=== PATIENT | female | born 1970 | race Caucasian/White ===

== ENCOUNTER 2017-01-22 05:46 | Outpatient (CLI) | payer BC ==
[~2017-01-22] VITALS: Ht 162.6 cm; Wt 108.9 kg
[2017-01-22] MEDS ORDERED: CHOL100045 PO (12:35)
[2017-01-22] MEDS ORDERED: PSEU30TA37 PO (12:35)
[2017-01-22] MEDS ORDERED: SPIR25TA3 PO (12:35)
== END 2017-01-22 12:50 ==
LOC: PREOP 05:46
PROVIDERS: ATTEND Internal Medicine
DX: Z01.818 Encounter for other preprocedural examination (principal); Z12.11 Encounter for screening for malignant neoplasm of colon

== ENCOUNTER 2017-01-23 08:14 | Day surgery (SDC) | payer BC ==
--- NOTE | 2017-01-22 09:18 | HISTORY AND PHYSICAL ---
DATE OF SERVICE: DATE OF ADMISSION: 01/23/2017 HISTORY OF PRESENT ILLNESS: The patient is a 46-year-old white female referred by Dr. Tamez for screening colonoscopy. There is a strong family history for colon cancer. Individuals include her father diagnosed in his 50s. She had grandfather and a great grandfather both on dad's side diagnosed with early colon cancer. She last underwent colonoscopy per Dr. Brooks in 2009. Her mother has history of breast cancer as well diagnosed postmenopausal. She ultimately ; however, of kidney cancer. The patient apparently did have at least 1 polyp on her colonoscopy in 2009 and she had had 1 previous colonoscopy around 2004 and she may have had a polyp at that time as well. Her procedures were performed by Dr. Brooks in [place]. PAST SURGICAL HISTORY: Significant for laparoscopic cholecystectomy in 2009 with an appendectomy at that time as well. SOCIAL HISTORY: She has a 5-pack-year smoking history, but quit in 2004. She reports three glasses of wine intake per week, compatible with moderate consumption. She is employed. FAMILY HISTORY: As is noted in the HPI. INITIAL HISTORY AND REVIEW OF SYSTEMS: The patient denies abdominal pain, change in bowel habit and has noted no melena or bright red blood per rectum. She denies any problems with dysphagia and has noted no hematuria, urinary frequency or nocturia. She denies chest pain. Reports stable dyspnea on exertion without orthopnea, PND or pedal edema. PAST MEDICAL HISTORY: Otherwise noncontributory. PHYSICAL EXAMINATION: GENERAL: Reveals a pleasant white female in no acute distress. VITAL SIGNS: Blood pressure 120/90. She is anxious during the interview because of her family history and what might be found on colonoscopy. HEENT: Her oral cavity reveals Mallampati class 3 configuration. Pharynx reveals no evidence for erythema or exudate. NECK: Reveals no JVD, adenopathy or bruits. CHEST: Clear. CARDIOVASCULAR: Regular rate and rhythm without murmur, S3 or S4. ABDOMEN: Soft, supple without mass, organomegaly or tenderness. Bowel sounds are positive in all four quadrants. EXTREMITIES: Reveal no cyanosis, clubbing or edema. Subsequently, her electronic medical record was reviewed and her last mammogram was in 2012, but will ask if she has had the procedures at [place] at the time of her procedure. It is otherwise unremarkable. She has had no hospital admissions here since her cholecystectomy and appendectomy. ASSESSMENT AND PLAN: The patient was set up for screening colonoscopy. She is deemed to be of higher than average risk due to strong family history of colon cancer. Her mother also had breast cancer. She has had several relatives that have had BRCA testing and have been negative per her report. We will discuss the importance of mammography as well and the patient was set up for screening colonoscopy on 01/23/2017. Prep instructions with Suprep kit were given and questions were answered. I thank you for the referral of this pleasant lady. Job ID: [id number] DocumentID: [id number] Dictated Date: 01/22/2017 08:32:48 Frame Stripper And Crusher Date: 01/22/2017 09:17:22 Dictated By: JAZZY MORENO MD
[~2017-01-23] VITALS: Ht 162.6 cm; Wt 108.9 kg
[~2017-01-23 08:14] MED LIST: CHOL100045 PO; PSEU30TA37 PO; SPIR25TA3 PO
--- OUTSIDE RECORDS SUMMARY | 2017-01-23 08:19 | XMS REPORT | Continuity of Care Document ---
Author Author [facility] Organization [facility] Address Unknown Phone Unavailable Allergies Medications Problems Date Dx Coded Attending Type Code Diagnosis Diagnosed By 03/21/2015 JOAQUÍN WADE MD Ot V76.12 04/10/2015 JOAQUÍN WADE MD Ot Z12.31 Procedures Results Encounters ACCT No. Visit Date/Time Discharge Status Pt. Type Provider Facility Loc./Unit Complaint [id number] 03/21/2015 10:26:00 2014 23:59:59 CLS Outpatient JOAQUÍN WADE MD [facility] RAD [id number] 09/28/2013 10:26:00 2013 23:59:59 CLS Outpatient JOAQUÍN WADE MD [facility] RAD [id number] 08/24/2012 09:56:00 2012 23:59:59 CLS Outpatient
[2017-01-23] MEDS ORDERED: 1/2 NS IV SOLUTION 1,000 ML IV STA (08:24)
[2017-01-23] MEDS ORDERED: LIDOCAINE JELLY 2% (XYLOCAINE) 5 ML TUBE MM PRN (08:30)
[2017-01-23 08:58] VITALS: BP 122/83
[2017-01-23] MEDS ORDERED: fentaNYL INJECTION 100 MCG/2 ML AMP ONE ×2 (09:04)
[2017-01-23] MEDS ORDERED: LIDOCAINE JELLY 2% (XYLOCAINE) 5 ML TUBE ONE (09:04)
[2017-01-23] MEDS ORDERED: MIDAZOLAM 2 MG/2 ML (VERSED) VIAL ONE ×3 (09:05→09:19)
--- NOTE | 2017-01-23 09:07 | Pre-Op Note & Conscious Sedat ---
Pre-Operative Progress Note H&P Reviewed The H&P was reviewed, patient examined and no changes noted. Date H&P Reviewed: Jan 23, 2017 Time H&P Reviewed: 09:00 Conscious Sedation Pre-Proced ASA Class: 2 Airway Mallampati Classification: (marshall appropriate class) I. II. III, IV Lungs Heart ASA score ASA 1: a normal healthy patient ASA 2: a patient with a mild systemic disease (mid diabetes, controlled hypertension, obesity ASA 3: a patient with a severe systemic disease that limits activity (angina , COPD, prior Myocardial infarction) ASA 4: a patient with an incapacitating disease that is a constant threat to life (CHF, renal failure) ASA 5: a moribund patient not expected to survive 24 hrs. (ruptured aneurysm) ASA 6: a declared brain patient whose organs are being harvested. For emergent operations, add the letter E after the classification Grade 3 Sedation Plan: Analgesia, Amnesia, Plan communicated to team members, Discussed options with patient/fam, Discussed risks with patient/fam Note The patient is an appropriate candidate to undergo the planned procedure, sedation, and anesthesia. The patient immediately re-assessed prior to indication. JAZZY MORENO MD Jan 23, 2017 09:07
[2017-01-23] MEDS: fentaNYL INJECTION 100 MCG/2 ML AMP IVP PRN ×2 (09:12→09:20)
[2017-01-23] MEDS: MIDAZOLAM 2 MG/2 ML (VERSED) VIAL IVP PRN ×3 (09:18→09:27)
[2017-01-23 10:25] VITALS: BP 129/72
[2017-01-23 10:55] VITALS: BP 108/78
[2017-01-23 11:00] VITALS: BP 108/78
--- NOTE | 2017-01-23 19:02 | OPERATIVE REPORT ---
DATE OF SERVICE: 01/23/2017 PROCEDURE: Screening colonoscopy, family history of one first and possibly at least one second degree relative with colon cancer. The patient was placed in the left lateral decubitus position. Prior to undergoing colonoscopy digital rectal evaluation was performed. Anal sphincter tone was normal and the perianal reflex was intact. No abnormalities were noted to digital inspection of anal canal or distal rectal vault. The colonoscope was then inserted into the rectum and under direct visualization advanced to the cecum. The cecum was identified by identification of the ileocecal valve and the cecal strap. Photographic documentation was obtained. Careful inspection was made as the colonoscope was withdrawn. The patient tolerated the procedure well and the quality of the prep was good. FINDINGS: There was no evidence for internal or external hemorrhoids, and the rectum, sigmoid colon, descending colon, splenic flexure and transverse colon as well as hepatic flexure were unremarkable. Present in the distal ascending colon was a diminutive 5 mm cowart and not ulcerated or inflamed sessile polyp. It was biopsied and ablated and submitted for histopathology with no significant blood loss. The remainder of the ascending colon and cecum were unremarkable. ASSESSMENT: One 5 mm adenomatous appearing polyp was removed via hot forceps from the distal ascending colon. This was an otherwise normal colonoscopy to the cecum. As long as there are no surprises on histopathology report, I would advocate 5-year surveillance colonoscopy interval. I thank you for the referral of this pleasant lady. Job ID: [id number] DocumentID: [id number] Dictated Date: 01/23/2017 11:51:55 Melter Supervisor Oxygen Furnace Date: 01/23/2017 19:01:44 Dictated By: JAZZY MORENO MD MTDD
== END 2017-01-23 11:00 | disposition home or self-care (01) ==
LOC: ENDO 08:14
PROVIDERS: ATTEND Internal Medicine
DX: Z12.11 Encounter for screening for malignant neoplasm of colon (principal); Z80.0 Family history of malignant neoplasm of digestive organs; K63.5 Polyp of colon; Z87.891 Personal history of nicotine dependence; Z80.3 Family history of malignant neoplasm of breast

== ENCOUNTER → 2017-03-13 | Outpatient (CLI) | payer BC | LOC: RAD 13:45 | PROVIDERS: ATTEND Obstetrics & Gynecology | DX: Z12.31 Encounter for screening mammogram for malignant neoplasm of breast (principal) ==

== ENCOUNTER → 2018-02-22 | Outpatient (CLI) | payer BC ==
[~2018-02-22] MED LIST changes: -SPIR25TA3 PO; +SPIR25TA5 PO
--- NOTE | 2018-02-23 10:47 | Diagnostic Imaging Report ---
Digital mammogram. Bilateral screening with 3-D tomosynthesis. This study was compared to prior exams of 03/13/2017, 03/21/2015 and 09/28/2013. At this time there are no current complaints. FINDINGS: There are scattered fibroglandular densities in both breasts which could obscure a lesion. Overall, there does not appear to have been any significant change when compared to the prior exam. No primary or secondary sign of malignancy is noted. IMPRESSION: There is no radiographic evidence for malignancy. ACR BI-RADS Category 1: Negative. Result letter will be mailed to the patient. Note: At least 10% of breast cancer is not imaged by mammography. Dictated by: Dictated on workstation # [id number]
== END ==
LOC: RAD 10:50
PROVIDERS: ATTEND Obstetrics & Gynecology
DX: Z12.31 Encounter for screening mammogram for malignant neoplasm of breast (principal)
CPT/HCPCS: 77067

== ENCOUNTER → 2019-04-12 | Outpatient (CLI) | payer BC ==
--- NOTE | 2019-04-12 13:19 | Diagnostic Imaging Report ---
INDICATION: Routine screening. COMPARISON: Comparison is made with prior mammograms from 02/22/2018 and 03/13/2017. 2-D and 3-D bilateral screening mammography was performed The current study was also evaluated with a Computer Aided Detection (CAD) system. 3-D tomosynthesis was also performed and reviewed. FINDINGS: Scattered fibroglandular densities are identified bilaterally. The parenchymal pattern is stable. No mass or malignant-appearing microcalcifications are seen. Axillae are unremarkable. IMPRESSION: No mammographic features suspicious for malignancy are identified. ACR BI-RADS Category 1: Negative. Result letter will be mailed to the patient. Note: At least 10% of breast cancer is not imaged by mammography. Dictated by: Dictated on workstation # [id number]
== END ==
LOC: RAD 10:31
PROVIDERS: ATTEND Obstetrics & Gynecology
DX: Z12.31 Encounter for screening mammogram for malignant neoplasm of breast (principal)
CPT/HCPCS: 77067

== ENCOUNTER → 2021-01-09 | Outpatient (CLI) | payer BC ==
--- NOTE | 2021-01-09 14:54 | Diagnostic Imaging Report ---
INDICATION: Right nipple discharge. Correlation is made with prior mammogram 04/12/2019 and 02/22/2018. 2-D and 3-D bilateral diagnostic mammography was performed with CAD. Scattered fibroglandular densities are identified bilaterally. The parenchymal pattern is stable. No mass or malignant-appearing microcalcifications are seen. Axillae are unremarkable. IMPRESSION: No mammographic features suspicious for malignancy are identified. Even so, directed sonographic interrogation of the retroareolar right breast is recommended and will be performed today. BI-RADS 0 ACR BI-RADS Category 0: Incomplete. (Needs additional imaging evaluation). Result letter will be mailed to the patient. Note: At least 10% of breast cancer is not imaged by mammography. Dictated by: Dictated on workstation # [id number]
--- NOTE | 2021-01-09 17:06 | Diagnostic Imaging Report ---
INDICATION: Right nipple discharge. COMPARISON: Correlation is made with diagnostic mammogram earlier the same day. EXAMINATION: Sonographic interrogation of the retroareolar right breast was performed. FINDINGS: No sonographic abnormality is seen. No solid or cystic mass is detected. No ductal dilatation is seen. IMPRESSION: No sonographic abnormality is detected. ACR BI-RADS Category 1: Negative. Result letter will be mailed to the patient. Note: At least 10% of breast cancer is not imaged by mammography. Dictated by: Dictated on workstation # [id number]
== END ==
LOC: RAD 14:15
PROVIDERS: ATTEND Obstetrics & Gynecology
DX: N60.21 Fibroadenosis of right breast (principal)
CPT/HCPCS: 76642; 77066; G0279; 77062

== ENCOUNTER 2021-04-20 11:27 | Emergency (ER) | payer BC ==
[~2021-04-20] VITALS: Ht 167 cm; Wt 90.0 kg
[2021-04-20 12:09] LABS: BASOPHILS # (AUTO) 0.1 10^3/uL (0.0-0.1); BASOPHILS % (AUTO) 1 % (0-10); EOSINOPHILS # (AUTO) 0.2 10^3/uL (0.0-0.3); EOSINOPHILS % (AUTO) 3 % (0-10); HEMATOCRIT 40 % (35-52); HEMOGLOBIN 13.3 g/dL (11.5-16.0); LYMPHOCYTES # (AUTO) 1.7 10^3/uL (1.0-4.0); LYMPHOCYTES % (AUTO) 29 % (12-44); MEAN CORPUSCULAR HEMOGLOBIN 31 pg (25-34); MEAN CORPUSCULAR HGB CONC 33 g/dL (32-36); MEAN CORPUSCULAR VOLUME 94 fL (80-99); MEAN PLATELET VOLUME 10.4 fL (9.0-12.2); MONOCYTES % (AUTO) 17 % (0-12); NEUTROPHILS # (AUTO) 2.9 10^3/uL (1.8-7.8); NEUTROPHILS % (AUTO) 50 % (42-75); PLATELET COUNT 297 10^3/uL (130-400); WHITE BLOOD COUNT 5.9 10^3/uL (4.3-11.0)
[2021-04-20 12:19] LABS: ALBUMIN 3.9 GM/DL (3.2-4.5); CHLORIDE 108 MMOL/L (98-107); POTASSIUM 3.6 MMOL/L (3.6-5.0); PROTHROMBIN TIME PATIENT 13.4 SEC (12.2-14.7); SODIUM 140 MMOL/L (135-145)
[2021-04-20 12:20] LABS: CALCIUM 8.7 MG/DL (8.5-10.1)
[2021-04-20 12:21] LABS: GLUCOSE 112 MG/DL (70-105)
[2021-04-20 12:22] LABS: CARBON DIOXIDE 20 MMOL/L (21-32)
[2021-04-20 12:23] LABS: BILIRUBIN,TOTAL 0.2 MG/DL (0.1-1.0)
[2021-04-20 12:24] LABS: ALKALINE PHOSPHATASE 49 U/L (40-136)
[2021-04-20 12:25] LABS: GFR ESTIMATED 90
[2021-04-20 12:26] LABS: BUN/CREATININE RATIO 13
--- NOTE | 2021-04-20 12:27 | ED General ---
General Chief Complaint: General Problems/Pain Stated Complaint: HEART FLUTTERING,DIZZY, BP 180/60 Nursing Triage Note: PT TO ED 2 W/ C/O PALPITATIONS, ELEVATED BP ET PALPITATIONS ONSET AFTER RECEIVING COVID BOOSTER X4 DAYS AGO. PT ALSO C/O INCREASED STRESS/ANXIETY R/T WORK ET HOME. NO OTHER C/O VOICED. PT DENIED CP, SOB, NAUSEA, VOMITING AT THIS TIME. (RAHAT RAMIREZ) History of Present Illness Date Seen by Provider: Apr 20, 2021 Time Seen by Provider: 11:40 Initial Comments 50 year old female presents for high B/P at home, with her husbands wrist cuff. No history of HTN. She does not have a PCP, sees Dr. Shaikh. Denies chest pain, n/v, diaphoresis or other complaints. B/P has returned to 120/80 and HR in 80s. She has increased stress for the last 6 months. In addition, she gets anxious with weather and related to COVID, she had her booster 4 days ago. She has noted her lymph nodes being slightly enlarged and tender, since the vaccine. She has chronic gingivitis and saw a new dental electrical assistant, who was aggressive during her cleaning. She took Ibuprofen this morning for left elbow being tender from a previous injury. No recent injuries. Timing/Duration: 4-6 Hours Associated Systoms: No Chest Pain, No Cough, No Diaphoresis, No Fever/Chills; Headaches (intermittent, not presently. Improve with Tylenol. ); No Loss of Appetite, No Malaise, No Nausea/Vomiting, No Shortness of Air, No Syncope, No Weakness (RAHAT RAMIREZ) Allergies and Home Medications Allergies Coded Allergies: Sulfa (Sulfonamide Antibiotics) (Verified Allergy, Unknown, 01/23/17) Patient Home Medication List Home Medication List Reviewed: Yes (RAHAT RAMIREZ) Cholecalciferol (Vitamin D3) (Vitamin D) 1,000 Unit Tablet, 1,000 UNIT PO DAILY, (Reported) Entered as Reported by: BOB SWANSON on 01/22/17 1235 Pseudoephedrine HCl (Pseudoephedrine HCl) 30 Mg Tablet, 30 MG PO BID PRN for CONGESTION, (Reported) Entered as Reported by: BOB SWANSON on 01/22/17 1235 Spironolactone (Spironolactone) 25 Mg Tablet, 25 MG PO DAILY, (Reported) Entered as Reported by: BOB SWANSON on 01/22/17 1235 Review of Systems Review of Systems Constitutional: no symptoms reported, see HPI EENTM: see HPI, no symptoms reported, mouth pain (from gingivitis, chronic. ); No mouth swelling Respiratory: no symptoms reported Cardiovascular: no symptoms reported, see HPI; No palpitations Gastrointestinal: no symptoms reported, see HPI Genitourinary: no symptoms reported, see HPI Musculoskeletal: no symptoms reported, see HPI Skin: no symptoms reported, see HPI (RAHAT RAMIREZ) All Other Systems Reviewed Negative Unless Noted: Yes (RAHAT RAMIREZ) Past Bqjnmgf-Klyyus-Trnstl Hx Immunizations Up To Date Tetanus Booster (TDap): Unknown (RAHAT RAMIREZ) Seasonal Allergies Seasonal Allergies: Yes (RAHAT RAMIREZ) Past Medical History Appendectomy, Gallbladder Loss of Vision: Bilateral Hearing Impairment: Denies Depression (RAHAT RAMIREZ) Family Medical History Reviewed Nursing Family Hx (RAHAT RAMIREZ) Physical Exam Vital Signs Vital Signs - First Documented 04/20/21 11:40 Temp 36.8 Pulse 98 Resp 20 B/P (MAP) 147/90 (109) Pulse Ox 100 O2 Delivery Room Air (JAD SULLIVAN MD) Vital Signs Capillary Refill : Less Than 3 Seconds (RAHAT RAMIREZ) Height, Weight, BMI Height: 5'4.00" Weight: 240lbs. 0.0oz. 108.290562ft; 32.00 BMI Method: General Appearance: No Apparent Distress, WD/WN Eyes: Bilateral Eye Normal Inspection, Bilateral Eye PERRL, Bilateral Eye EOMI HEENT: PERRL/EOMI, TMs Normal, Normal ENT Inspection, Pharynx Normal, Other (no facial drooping) Neck: Full Range of Motion, Normal Inspection, Supple, Lymphadenopathy (L) (trace), Lymphadenopathy (R) (trace) Respiratory: Chest Non Tender, Lungs Clear, Normal Breath Sounds Gastrointestinal: Normal Bowel Sounds, Non Tender, Soft Extremity: Normal Capillary Refill, Normal Inspection, Normal Range of Motion, Non Tender, No Calf Tenderness Neurologic/Psychiatric: Alert, Oriented x3, No Motor/Sensory Deficits, Normal Mood/Affect (RAHAT RAMIREZ) Progress/Results/Core Measures Suspected Sepsis SIRS Temperature: Pulse: 98 Respiratory Rate: 20 Laboratory Tests 04/20/21 12:00: White Blood Count 5.9 Blood Pressure 147 /90 Mean: 109 Laboratory Tests 04/20/21 12:00: Creatinine 0.80, INR Comment 1.0, Platelet Count 297, Total Bilirubin 0.2 (RAHAT RAMIREZ) Results/Orders Lab Results Laboratory Tests Test 04/20/21 12:00 Range/Units White Blood Count 5.9 4.3-11.0 10^3/uL Red Blood Count 4.26 3.80-5.11 10^6/uL Hemoglobin 13.3 11.5-16.0 g/dL Hematocrit 40 35-52 % Mean Corpuscular Volume 94 80-99 fL Mean Corpuscular Hemoglobin 31 25-34 pg Mean Corpuscular Hemoglobin Concent 33 32-36 g/dL Red Cell Distribution Width 12.7 10.0-14.5 % Platelet Count 297 130-400 10^3/uL Mean Platelet Volume 10.4 9.0-12.2 fL Immature Granulocyte % (Auto) 0 % Neutrophils (%) (Auto) 50 42-75 % Lymphocytes (%) (Auto) 29 12-44 % Monocytes (%) (Auto) 17 H 0-12 % Eosinophils (%) (Auto) 3 0-10 % Basophils (%) (Auto) 1 0-10 % Neutrophils # (Auto) 2.9 1.8-7.8 10^3/uL Lymphocytes # (Auto) 1.7 1.0-4.0 10^3/uL Monocytes # (Auto) 1.0 0.0-1.0 10^3/uL Eosinophils # (Auto) 0.2 0.0-0.3 10^3/uL Basophils # (Auto) 0.1 0.0-0.1 10^3/uL Immature Granulocyte # (Auto) 0.0 0.0-0.1 10^3/uL Prothrombin Time 13.4 12.2-14.7 SEC INR Comment 1.0 0.8-1.4 Activated Partial Thromboplast Time 28 24-35 SEC Sodium Level 140 135-145 MMOL/L Potassium Level 3.6 3.6-5.0 MMOL/L Chloride Level 108 H 98-107 MMOL/L Carbon Dioxide Level 20 L 21-32 MMOL/L Anion Gap 12 5-14 MMOL/L Blood Urea Nitrogen 10 7-18 MG/DL Creatinine 0.80 0.60-1.30 MG/DL Estimat Glomerular Filtration Rate 90 BUN/Creatinine Ratio 13 Glucose Level 112 H 70-105 MG/DL Calcium Level 8.7 8.5-10.1 MG/DL Corrected Calcium 8.8 8.5-10.1 MG/DL Total Bilirubin 0.2 0.1-1.0 MG/DL Aspartate Amino Transf (AST/SGOT) 16 5-34 U/L Alanine Aminotransferase (ALT/SGPT) 18 0-55 U/L Alkaline Phosphatase 49 40-136 U/L Troponin I < 0.028 <0.028 NG/ML Total Protein 7.0 6.4-8.2 GM/DL Albumin 3.9 3.2-4.5 GM/DL (JAD SULLIVAN MD) Vital Signs/I&O 04/20/21 04/20/21 11:40 12:50 Temp 36.8 Pulse 98 70 Resp 20 13 B/P (MAP) 147/90 (109) 96/75 Pulse Ox 100 97 O2 Delivery Room Air Room Air (JAD SULLIVAN MD) Vital Signs/I&O Capillary Refill : Less Than 3 Seconds (RAHAT RAMIREZ) Blood Pressure Mean: 109 Progress Note : Time: 11:40 Progress Note Patient seen and evaluated, will obtain EKG and labs. 1240 B/P and pulse have been normal. No palpitations. Reviewed all results with patient and reassured her. Discussed establishing with a PCP and checking b/p once daily, logging it. Discharge instructions and return precautions reviewed. (RAHAT RAMIREZ) ECG Initial ECG Impression Date: Apr 20, 2021 Initial ECG Impression Time: 12:06 Initial ECG Rate: 71 Initial ECG Rhythm: Normal Sinus Initial ECG Intervals: Normal Initial ECG Intervals LA 127, QRSD 112, QT 380, QTc 413. Garrison P 19, QRS -5, T3 Initial ECG Impression: Normal Initial ECG Comparisson: No Previous ECG Available (RAHAT RAMIREZ) Departure Impression Primary Impression: Stress Disposition: HOME, SELF-CARE Condition: Improved Departure-Patient Inst. Decision time for Depature: 12:40 (RAHAT RAMIREZ) Referrals: JOAQUÍN WADE MD NO,LOCAL PHYSICIAN (PCP) Primary Care Physician Patient Instructions: Stress Add. Discharge Instructions: Check blood pressure once daily. Establish care with a primary care provider in [place]. Consider meditation, yoga, exercise, or other hobby, to help reduce stress/anxiety. Return to the Emergency Dept for new, urgent health care needs. All discharge instructions reviewed with patient and/or family. Voiced understanding. Work/School Note: School/Childcare Release ATTENDING PHYSICIAN NOTE: I was physically present as attending physician in the emergency department during the care of this patient, but I was not directly involved in the decision making or delivery of care for this patient. (JAD SULLIVAN MD) RAHAT RAMIREZ Apr 20, 2021 12:27 JAD SULLIVAN MD Apr 22, 2021 08:13
[2021-04-20 12:28] LABS: ALANINE AMINOTRANSFERASE 18 U/L (0-55)
[2021-04-20 12:50] VITALS: BP 96/75
== END 2021-04-20 12:50 | disposition home or self-care (01) ==
LOC: EDUNIT# 11:27 → ER 11:32
DX: F43.9 Reaction to severe stress, unspecified (principal)
CPT/HCPCS: 36415; 80053; 84484; 85025; 85610; 85730; 93005

== ENCOUNTER 2021-05-24 19:32 | Emergency (ER) | payer BC ==
[2021-05-24 21:00] LABS: BASOPHILS % (AUTO) 1 % (0-10); EOSINOPHILS # (AUTO) 0.1 10^3/uL (0.0-0.3); EOSINOPHILS % (AUTO) 2 % (0-10); LYMPHOCYTES # (AUTO) 1.9 10^3/uL (1.0-4.0); LYMPHOCYTES % (AUTO) 28 % (12-44); MEAN CORPUSCULAR HGB CONC 32 g/dL (32-36); MEAN CORPUSCULAR VOLUME 99 fL (80-99); MEAN PLATELET VOLUME 9.6 fL (9.0-12.2); MONOCYTES # (AUTO) 0.6 10^3/uL (0.0-1.0); MONOCYTES % (AUTO) 8 % (0-12); NEUTROPHILS # (AUTO) 4.1 10^3/uL (1.8-7.8); NEUTROPHILS % (AUTO) 61 % (42-75)
[2021-05-24 21:02] LABS: HEMATOCRIT 31 % (35-52); HEMOGLOBIN 9.7 g/dL (11.5-16.0); MEAN CORPUSCULAR HEMOGLOBIN 32 pg (25-34); PLATELET COUNT 173 10^3/uL (130-400); WHITE BLOOD COUNT 7.5 10^3/uL (4.3-11.0)
[2021-05-24 21:10] LABS: POTASSIUM 3.7 MMOL/L (3.6-5.0)
[2021-05-24 21:12] LABS: CALCIUM 9.6 MG/DL (8.5-10.1)
[2021-05-24 21:16] LABS: CREATININE SERUM 0.91 MG/DL (0.60-1.30)
[2021-05-24 21:18] LABS: MAGNESIUM 2.2 MG/DL (1.6-2.4)
[2021-05-24 22:09] LABS: TSH (THYROID ANALYZER) 0.53 UIU/ML (0.35-4.94)
--- NOTE | 2021-05-24 22:53 | ED Cardiac General ---
History of Present Illness General Chief Complaint: Psych/Social Disorder Stated Complaint: HEART RACING Nursing Triage Note: TO ED VIA POV AND AMBULATORY TO ROOM 7 WITH C/O "HEART RACING" WHILE SITTING AT LOCAL BAR AND GRILL TONIGHT. STATES TOOK XANAX APPROX 1845. Source: patient Exam Limitations: no limitations History of Present Illness Date Seen by Provider: May 24, 2021 Time Seen by Provider: 19:45 Initial Comments This 50-year-old woman presents to the emergency room with complaints of palpitations and racing heart. She was out to eat when she was suddenly overwhelmed with this sensation. It lasted approximately 1 hour. She took Xanax 0.125 mg and eventually it calm down. She did not have a means to check her heart rate or rhythm at the time. She also describes the sensation as a fluttering feeling in her chest. She has recently been on Augmentin for a periodontal infection. She read that Augmentin can deplete potassium levels. She therefore took doses of potassium supplements yesterday and today. She reports having an episode of dizziness on Thursday. She does not presently have a primary care provider but has an appointment to establish care on June 29. She denies any stimulant use but does drink a lot of coffee. She does occasionally smoke socially and occasionally drinks alcohol. She denies any drug use. She reports being under much stress recently with multiple deaths in the family and working on settling a [employer] as well as dealing with her periodontal issue and anticipating oral surgery. She wants to make sure that she does not have a serious cardiac issue before under taking any surgical procedures. Patient was also seen and evaluated for similar symptoms in the ER on April 20. 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: No Allergies and Home Medications Allergies Coded Allergies: Sulfa (Sulfonamide Antibiotics) (Verified Allergy, Unknown, 01/23/17) Patient Home Medication List Home Medication List Reviewed: Yes Cholecalciferol (Vitamin D3) (Vitamin D) 1,000 Unit Tablet, 1,000 UNIT PO DAILY, (Reported) Entered as Reported by: BOB SWANSON on 01/22/17 1235 Pseudoephedrine HCl (Pseudoephedrine HCl) 30 Mg Tablet, 30 MG PO BID PRN for CONGESTION, (Reported) Entered as Reported by: BOB SWANSON on 01/22/17 1235 Spironolactone (Spironolactone) 25 Mg Tablet, 25 MG PO DAILY, (Reported) Entered as Reported by: BOB SWANSON on 01/22/17 5223 Review of Systems Review of Systems Constitutional: no symptoms reported EENTM: See HPI Respiratory: No Symptoms Reported Cardiovascular: See HPI Gastrointestinal: No Symptoms Reported Genitourinary: No Symptoms Reported Musculoskeletal: no symptoms reported Skin: no symptoms reported Psychiatric/Neurological: See HPI Endocrine: No Symptoms Reported Hematologic/Lymphatic: No Symptoms Reported Past Lkmzjta-Ytrbzp-Jbpaut Hx Patient Social History Tobacco Use?: Yes Tobacco type used: Cigarettes Smoking Status: Current Someday Smoker Substance use?: No Alcohol Use?: Yes Alcohol Frequency: Once in a while Immunizations Up To Date Tetanus Booster (TDap): Unknown Influenza Vaccine Up-to-Date: No; Not Current Seasonal Allergies Seasonal Allergies: Yes Past Medical History Surgeries: Yes ([place] teeth) Appendectomy, Gallbladder Respiratory: No Cardiac: Yes High Cholesterol Neurological: No : No Reproductive Disorders: Yes Female Reproductive Disorders: Polycystic Ovarian Dis Genitourinary: No Gastrointestinal: No Musculoskeletal: No Endocrine: No HEENT: Yes (Periodontal disease with dental decay and abscess) Loss of Vision: Bilateral Hearing Impairment: Denies Cancer: No Psychosocial: Yes Depression Integumentary: No Physical Exam Vital Signs Vital Signs - First Documented 05/24/21 19:51 Temp 37.0 Pulse 76 Resp 20 B/P (MAP) 139/83 (101) Pulse Ox 100 O2 Delivery Room Air Capillary Refill : Less Than 3 Seconds Height, Weight, BMI Height: 5'4.00" Weight: 240lbs. 0.0oz. 108.082063av; 32.00 BMI Method: General Appearance: No Apparent Distress, Anxious HEENT: PERRL/EOMI, Normal ENT Inspection Neck: Normal Inspection Respiratory: Lungs Clear, Normal Breath Sounds, No Accessory Muscle Use Cardiovascular: Regular Rate, Rhythm, No Edema, No Murmur Gastrointestinal: Normal Bowel Sounds, Non Tender, Soft Extremity: Normal Inspection, No Pedal Edema Neurologic/Psychiatric: Alert, Oriented x3, No Motor/Sensory Deficits, processing supervisor II- XII Norm as Tested, Other (Mildly anxious) Skin: Normal Color, Warm/Dry Progress/Results/Core Measures Results/Orders Lab Results Laboratory Tests Test 05/24/21 20:50 Range/Units White Blood Count 7.5 4.3-11.0 10^3/uL Red Blood Count 3.07 L 3.80-5.11 10^6/uL Hemoglobin 9.7 L 11.5-16.0 g/dL Hematocrit 31 L 35-52 % Mean Corpuscular Volume 99 80-99 fL Mean Corpuscular Hemoglobin 32 25-34 pg Mean Corpuscular Hemoglobin Concent 32 32-36 g/dL Red Cell Distribution Width 12.5 10.0-14.5 % Platelet Count 173 130-400 10^3/uL Mean Platelet Volume 9.6 9.0-12.2 fL Immature Granulocyte % (Auto) 0 % Neutrophils (%) (Auto) 61 42-75 % Lymphocytes (%) (Auto) 28 12-44 % Monocytes (%) (Auto) 8 0-12 % Eosinophils (%) (Auto) 2 0-10 % Basophils (%) (Auto) 1 0-10 % Neutrophils # (Auto) 4.1 1.8-7.8 10^3/uL Lymphocytes # (Auto) 1.9 1.0-4.0 10^3/uL Monocytes # (Auto) 0.6 0.0-1.0 10^3/uL Eosinophils # (Auto) 0.1 0.0-0.3 10^3/uL Basophils # (Auto) 0.0 0.0-0.1 10^3/uL Immature Granulocyte # (Auto) 0.0 0.0-0.1 10^3/uL Sodium Level 139 135-145 MMOL/L Potassium Level 3.7 3.6-5.0 MMOL/L Chloride Level 109 H 98-107 MMOL/L Carbon Dioxide Level 15 L 21-32 MMOL/L Anion Gap 15 H 5-14 MMOL/L Blood Urea Nitrogen 15 7-18 MG/DL Creatinine 0.91 0.60-1.30 MG/DL Estimat Glomerular Filtration Rate 77 BUN/Creatinine Ratio 16 Glucose Level 78 70-105 MG/DL Calcium Level 9.6 8.5-10.1 MG/DL Magnesium Level 2.2 1.6-2.4 MG/DL TSH [place] Testing 0.53 0.35-4.94 UIU/ML My Orders Orders - JAD SULLIVAN MD Ekg Tracing (05/24/21 19:45) Monitor-Rhythm Ecg Trace Only (05/24/21 19:45) Basic Metabolic Panel (05/24/21 20:23) Cbc With Automated Diff (05/24/21 20:23) Magnesium (05/24/21 20:23) Thyroid Analyzer (05/24/21 20:25) Vital Signs/I&O 05/24/21 05/24/21 19:51 23:08 Temp 37.0 37.0 Pulse 76 62 Resp 20 16 B/P (MAP) 139/83 (101) 129/92 Pulse Ox 100 100 O2 Delivery Room Air Room Air Blood Pressure Mean: 101 Progress Progress Note : Progress Note Work-up was unremarkable and patient experienced no cardiac events. We discussed the need for further outpatient work-up. She was encouraged to discuss cardiac monitoring with her primary care provider in follow-up or to promptly establish care with a sprinkler fitter apprentice to pursue further evaluation. Initial ECG Impression Date: May 24, 2021 Initial ECG Impression Time: 19:55 Initial ECG Rate: 68 Initial ECG Rhythm: Normal Sinus Comment Sinus rhythm with no ST elevation or depression. Right bundle branch block. No axis deviation. Departure Impression Primary Impression: Palpitations Additional Impression: Acute stress disorder Disposition: 01 HOME, SELF-CARE Condition: Improved Departure-Patient Inst. Decision time for Depature: 22:49 Referrals: SOLANGE CAMILO MD FACP [facility] SARINA BARRON MD ,LOCAL PHYSICIAN (PCP) Primary Care Physician TAURUS PARTIDA JR, MD Patient Instructions: Palpitations, Stress Add. Discharge Instructions: Drink plenty of clear liquids to stay well-hydrated. You should not need to t jake extra potassium or other electrolytes if you eat a well-balanced diet. Continue to focus on healthy lifestyle habits such as healthy eating, exercise, weight reduction, smoking cessation, etc. Follow-up with a primary care provider soon as possible. It would be arellano to call the [facility] clinic and asked to be put on a cancellation waiting list to expedite your appointment. Check with your insurance company to ask if they require referrals for cardiology appointments. If they do not require a referral, you may call one of the sprinkler fitter apprentice below to schedule an appointment. Avoid excessive or extra stimulants such as excessive caffeine, decongestant medicines, diet pills, energy drinks, medications for ADHD, workout supplements, etc. as they may trigger more palpitations. You may obtain a device to monitor heart rate and rhythm. If you are having sustained irregular heart rate or rapid heart rate (heart rate greater than 120) at rest, and then return to the emergency room. Call with questions or concerns. Return to the ER if you have any other urgent health concerns or problems. All discharge instructions reviewed with patient and/or family. Voiced understanding. Copy Copies To 1: SUMA MCCALLUM JOSHUA T MD May 24, 2021 22:53
[2021-05-24 23:08] VITALS: BP 129/92
== END 2021-05-24 23:08 | disposition home or self-care (01) ==
LOC: EDUNIT# 19:32 → ER 19:34
DX: R00.2 Palpitations (principal); F43.0 Acute stress reaction; F17.210 Nicotine dependence, cigarettes, uncomplicated
CPT/HCPCS: 36415; 80048; 83735; 84443; 85025; 93005; 93041

== ENCOUNTER → 2021-06-17 | Outpatient (CLI) | payer BC | LOC: CARD 14:00 | PROVIDERS: ATTEND Internal Medicine Cardiovascular Disease | DX: I35.1 Nonrheumatic aortic (valve) insufficiency (principal); I11.9 Hypertensive heart disease without heart failure; I25.10 Atherosclerotic heart disease of native coronary artery without angina pectoris | CPT/HCPCS: 93225; 93226; 93306 ==

== ENCOUNTER → 2021-07-08 | Outpatient (CLI) | payer BC ==
[~2021-07-08] VITALS: Ht 162 cm; Wt 105.0 kg
[~2021-07-08] MED LIST changes: +CATHETER FLUSH 10 ML SYR IVP PRN
[2021-07-08 09:50] VITALS: BP 95/66
--- NOTE | 2021-07-08 11:21 | Cardiology Stress Test Report ---
Stress Test Report Date of Procedure/Referring: Date of Procedure: Jul 08, 2021 PCP Sarina Kurtz MD Admitting Physician No,Local Physician Indications: HTN Baseline Heart Rate: 60 Baseline Blood Pressure: Blood Pressure Systolic: 95 Blood Pressure Diastolic: 66 Vital Signs Date Time Temp Pulse Resp B/P (MAP) Pulse Ox O2 Delivery O2 Flow Rate FiO2 07/08/21 09:50 60 95/66 (76) Baseline Vital Signs Vital Signs Date Time Temp Pulse Resp B/P (MAP) Pulse Ox O2 Delivery O2 Flow Rate FiO2 07/08/21 09:50 60 95/66 (76) Baseline EKG: Baseline EKG: NSR Summary: After explaining the procedure and details to the patient, she signed the consent and was brought to the stress nuclear laboratory. Patient exercised on standard Lg protocol, EKG, heart rate and blood pressure were monitored continuously, resting and stress doses of radio tracer were injected, imaging was acquired and reviewed in the short axis, horizontal long axis and vertical long axis views Patient was able to exercise for a total of 5.30 minutes on Lg protocol, METs 7.1 Maximum heart rate 147 Maximum blood pressure 150/80 Stress EKG, Minimal nondiagnostic changes Recovery EKG, Return to baseline TID: 0.95 SSS: 5 SDS: 5 EF: 56 Conclusion: 1. Fair exercise tolerance for a total of 5 minutes 30 seconds on standard Lg protocol, 7.1 METS achieving 86% of maximal expected heart rate 2. Appropriate heart rate and blood pressure response to exercise return to baseline during recovery 3. Minimal nondiagnostic EKG changes with exercise return to baseline during recovery 4. Breast attenuation with typical female pattern mild decrease uptake involving the basal to mid anterior wall with mild reversibility, there is no significant ischemia or infarction on SPECT images 5. Normal left ventricular size, EF 56% SARINA KURTZ MD Jul 08, 2021 11:21
== END ==
LOC: CARD 07:59
PROVIDERS: ATTEND Internal Medicine Cardiovascular Disease
DX: I10 Essential (primary) hypertension (principal); I25.10 Atherosclerotic heart disease of native coronary artery without angina pectoris
CPT/HCPCS: 78452; 93017; A9502

== ENCOUNTER 2021-09-18 07:17 | Outpatient (CLI) | payer BC ==
[~2021-09-18] VITALS: Ht 162.6 cm; Wt 104.3 kg
[~2021-09-18 07:17] MED LIST changes: -CATHETER FLUSH 10 ML SYR IVP PRN
[2021-09-19] MEDS ORDERED: ASPI-999 PO (09:23)
[2021-09-19] MEDS ORDERED: MEDR150V IM (09:23)
[2021-09-19] MEDS ORDERED: FLUT15.845 NS (09:23)
[2021-09-19] MEDS ORDERED: METO50TA7 PO (09:23)
== END 2021-09-19 10:48 | disposition home or self-care (01) ==
LOC: PREOP 07:17
PROVIDERS: ATTEND Internal Medicine
DX: Z01.818 Encounter for other preprocedural examination (principal)

== ENCOUNTER 2021-09-27 10:06 | Day surgery (SDC) | payer BC ==
--- NOTE | 2021-09-18 07:58 | HISTORY AND PHYSICAL ---
DATE OF SERVICE: COLONOSCOPY HISTORY AND PHYSICAL DATE OF ADMISSION: 09/27/2021 HISTORY OF PRESENT ILLNESS: The patient is a 51-year-old white female referred by Elliott Quinteros, nurse practitioner at [facility] for surveillance colonoscopy. She last underwent colonoscopy five years ago, at which time she had one hyperplastic polyp removed from the distal ascending colon. She is deemed to be of higher than average risk as her father was diagnosed with colon cancer in his 50s, also had a grandfather with relatively early colon cancer on her dad's side. She reports that she did not have difficulty with her last colonoscopy. She does report with general anesthetic she has had some neuropsychiatric side effects temporary with change in personality, mostly irritability and aggression. She reported no problems with colonoscopy five years ago. PAST SURGICAL HISTORY: Significant for laparoscopic cholecystectomy in 2009 and appendectomy at that time as well. SOCIAL HISTORY: She had very limited less than 5-pack-year smoking history but quit in 2004. She has occasional small volume alcohol intake, qualifying for moderate consumption, employed. FAMILY HISTORY: As noted in the HPI. PAST MEDICAL HISTORY: Significant for hypertension with no known history of coronary artery disease. REVIEW OF SYSTEMS: CONSTITUTIONAL: Denies night sweats, chills, fever or change in weight. GASTROINTESTINAL: Denies abdominal pain, bright red blood per rectum, melena, diarrhea or constipation. PULMONARY: Denies cough, wheezing or shortness of breath. CARDIOVASCULAR: Denies orthopnea, PND, pedal edema, chest discomfort, dyspnea on exertion. PHYSICAL EXAMINATION: GENERAL: Pleasant white female, appears to be in no acute distress. VITAL SIGNS: Weight 230 pounds, blood pressure 128/72. HEENT: Unremarkable. Sclerae nonicteric. CHEST: Clear to auscultation. CARDIOVASCULAR: Reveals regular rate and rhythm without murmur, S3 or S4. ABDOMEN: Soft, supple without mass, organomegaly or tenderness. EXTREMITIES: Reveal no cyanosis, clubbing or edema. ASSESSMENT AND PLAN: The patient is set up for screening colonoscopy. Electronic medical record was reviewed and deemed to be higher than average risk, family history of colon cancer in father and grandfather. See HPI. I thank you for the referral of this pleasant lady. Job ID: [id number] DocumentID: [id number] Dictated Date: 09/16/2021 16:17:17 Drafter Plumbing Date: 09/16/2021 17:45:06 Dictated By: JAZZY MORENO MD
[~2021-09-27] VITALS: Ht 162 cm; Wt 104.3 kg
[~2021-09-27 10:06] MED LIST changes: +ASPI-999 PO; +FLUT15.845 NS; +MEDR150V IM; +METO50TA7 PO
[2021-09-27 10:38] VITALS: BP 117/73
[2021-09-27] MEDS ORDERED: LACTATED RINGERS 1,000 ML IV STA (10:42)
--- NOTE | 2021-09-27 10:48 | Pre-Op Note & Conscious Sedat ---
Pre-Operative Progress Note H&P Reviewed The H&P was reviewed, patient examined and no changes noted. Date H&P Reviewed: Sep 27, 2021 Time H&P Reviewed: 10:48 Conscious Sedation Pre-Proced ASA Score 2 For ASA 3 and 4: Consider anesthesia and medical clearance. Also, for patients with a history of failed moderate sedation consider anesthesia. Airway Lungs Heart ASA score ASA 1: a normal healthy patient ASA 2: a patient with a mild systemic disease (mid diabetes, controlled hypertension, obesity ASA 3: a patient with a severe systemic disease that limits activity (angina, COPD, prior Myocardial infarction) ASA 4: a patient with an incapacitating disease that is a constant threat to life (CHF, renal failure) ASA 5: a moribund patient not expected to survive 24 hrs. (ruptured aneurysm) ASA 6: a declared brain- patient whose organs are being harvested. For emergent operations, add the letter E after the classification Mallampati Classification Grade 2 Sedation Plan Analgesia, Amnesia, Plan communicated to team members, Discussed options with patient/fam, Discussed risks with patient/fam The patient is an appropriate candidate to undergo the planned procedure, sedation, and anesthesia. The patient immediately re-assessed prior to indication. JAZZY MORENO MD Sep 27, 2021 10:48
[2021-09-27] MEDS ORDERED: PROPOFOL INJECTION 50 ML IV ONE ×2 (10:50→11:14)
[2021-09-27 11:45] VITALS: BP 110/66
[2021-09-27 11:50] VITALS: BP 113/64
--- NOTE | 2021-09-27 11:51 | Anesthesia-General Post-Op ---
MAC Patient Condition Mental Status/LOC: Same as Preop Cardiovascular: Satisfactory Nausea/Vomiting: Absent Respiratory: Satisfactory Pain: Controlled Complications: Absent Post Op Complications Complications None Follow Up Care/Instructions Patient Instructions None needed. Anesthesiology Discharge Order Discharge Order Patient is doing well, no complaints, stable vital signs, no apparent adverse anesthesia problems. No complications reported per nursing. WENDY LOUISE CRNA Sep 27, 2021 11:51
[2021-09-27 12:15] VITALS: BP 114/78
[2021-09-27 12:17] VITALS: BP 114/78
--- NOTE | 2021-09-27 20:17 | OPERATIVE REPORT ---
DATE OF SERVICE: COLONOSCOPY SUMMARY INDICATION FOR THE PROCEDURE: Screening colonoscopy. DESCRIPTION OF PROCEDURE: The patient was placed in the left lateral decubitus position. Prior to undergoing colonoscopy, digital rectal evaluation was performed. Anal sphincter tone was normal and the perianal reflexes intact. No abnormalities were noted on digital inspection of anal canal or distal rectal vault. The colonoscope was then inserted into the rectum and under direct visualization advanced to cecum. The cecum was identified by identification of ileocecal valve and cecal strap. Photographic documentation was obtained. Quality of prep was fair. FINDINGS: There was no evidence for external hemorrhoids. One internal hemorrhoid grade II complex was noted. The rectum, sigmoid colon, and descending colon were unremarkable. Present at the splenic flexure as well as proximal transverse colon were 2 sessile 3 mm polyps, both were biopsied and ablated with no subsequent blood loss. The remainder of the ascending colon and cecum were unremarkable. ASSESSMENT: 1. Two diminutive sessile polyps as long as there are no surprises were removed, one from the splenic flexure, the other from the proximal transverse colon under good prep conditions. As long as there are no surprises on histopathology report considering this patient's family history for colon cancer, advocate consideration for repeat screening colonoscopy in 5 years. One grade II internal hemorrhoid complex was noted, but no other abnormalities being appreciated. CC: [facility] - requested, unable to deliver. Job ID: [id number] DocumentID: [id number] Dictated Date: 09/27/2021 11:44:19 Handwriting Expert Date: 09/27/2021 20:16:23 Dictated By: JAZZY MORENO MD
== END 2021-09-27 12:30 | disposition home or self-care (01) ==
LOC: ENDO 10:06
PROVIDERS: ATTEND Internal Medicine
DX: Z12.11 Encounter for screening for malignant neoplasm of colon (principal); D12.3 Benign neoplasm of transverse colon; K64.1 Second degree hemorrhoids; Z87.891 Personal history of nicotine dependence
CPT/HCPCS: 84703

== ENCOUNTER → 2022-01-01 | Outpatient (CLI) | payer BC ==
--- NOTE | 2022-01-01 09:21 | Diagnostic Imaging Report ---
Indication: Routine screening. Comparison is made with prior mammogram 01/09/2021 and 04/12/2019. 2-D and 3-D bilateral screening mammography was performed with CAD. CAD is utilized. The current study was also evaluated with a Computer Aided Detection (CAD) system. Scattered fibroglandular densities are identified bilaterally. The parenchymal pattern is stable. No mass or malignant-appearing microcalcifications are identified. Axillae are unremarkable. IMPRESSION: BI-RADS Category 1 No mammographic features suspicious for malignancy are identified. ACR BI-RADS Category 1: Negative. Result letter will be mailed to the patient. Note: At least 10% of breast cancer is not imaged by mammography. Dictated by: Dictated on workstation # [id number]
== END ==
LOC: RAD 08:00
PROVIDERS: ATTEND Obstetrics & Gynecology
DX: Z12.31 Encounter for screening mammogram for malignant neoplasm of breast (principal)
CPT/HCPCS: 77063; 77067

== ENCOUNTER → 2022-04-21 | Outpatient (CLI) | payer BC ==
--- NOTE | 2022-04-21 10:41 | Diagnostic Imaging Report ---
PROCEDURE: Pelvic comp/transvaginal sonogram. TECHNIQUE: Complete transabdominal and transvaginal pelvic ultrasound was performed. In addition, limited pelvic Doppler was performed. INDICATION: Right lower quadrant pain. FINDINGS: The uterus is anteverted measuring 6.9 x 3.5 x 3.6 cm. The endometrium is 7 mm in thickness. There is an area of slightly cystic heterogeneity in the cervix, nonspecific. No myometrial mass is identified. The right ovary measures 2.2 x 2.0 x 2.6 cm and the left ovary measures 1.7 x 1.3 x 1.8 cm. The right ovary does contain an approximately 2 cm cyst. There is blood flow to both ovaries. The urinary bladder is unremarkable. Bilateral ureteral jets are visualized. Trace free pelvic fluid is noted. IMPRESSION: There is a 2 cm right ovarian cyst. No other significant abnormality is detected. Dictated by: Dictated on workstation # [id number]
--- NOTE | 2022-04-21 15:50 | Diagnostic Imaging Report ---
INDICATION: Right lower quadrant pain. PROCEDURE: Ultrasound abdomen complete. TECHNIQUE: Multiple real-time grayscale images were obtained of the abdomen in various projections. The liver is normal in size at approximately 15.6 cm. Portal vein is patent and shows normal direction of flow. No liver mass is detected. Gallbladder is surgically absent. No biliary ductal dilatation is seen. Pancreas is unremarkable. Spleen measures 8.2 cm in length. Aorta is nonaneurysmal. IVC is patent. Kidneys are without evidence of calculi or hydronephrosis. There is a tiny echogenic structure in the left kidney approximately 9 mm in size. A small angiomyolipoma cannot be entirely excluded. There is no ascites. IMPRESSION: Status post cholecystectomy. Study is otherwise unremarkable. No acute feature is detected. Dictated by: Dictated on workstation # [id number]
== END ==
LOC: RAD 08:06
PROVIDERS: ATTEND Obstetrics & Gynecology
DX: N83.201 Unspecified ovarian cyst, right side (principal)
CPT/HCPCS: 76700; 76830; 76856

== ENCOUNTER 2022-06-13 14:25 | Emergency (ER) | payer BC ==
[~2022-06-13] VITALS: Ht 162 cm; Wt 108.0 kg
--- NOTE | 2022-06-13 15:24 | Diagnostic Imaging Report ---
EXAMINATION: Chest 1 view. HISTORY: Chest pain. COMPARISON: None available. FINDINGS: The lung volumes are normal. No focal consolidation is seen. No large pleural effusion or pneumothorax is seen. The cardiomediastinal silhouette is normal in size and contour. No acute osseous abnormality is seen. IMPRESSION: No acute pleuroparenchymal process. Dictated by: Dictated on workstation # [id number]
[2022-06-13 16:06] LABS: BASOPHILS % (AUTO) 0 % (0-10); EOSINOPHILS # (AUTO) 0.2 10^3/uL (0.0-0.3); EOSINOPHILS % (AUTO) 3 % (0-10); HEMATOCRIT 41 % (35-52); HEMOGLOBIN 13.3 g/dL (11.5-16.0); LYMPHOCYTES % (AUTO) 34 % (12-44); MEAN CORPUSCULAR HEMOGLOBIN 31 pg (25-34); MEAN CORPUSCULAR HGB CONC 32 g/dL (32-36); MEAN CORPUSCULAR VOLUME 96 fL (80-99); MEAN PLATELET VOLUME 10.4 fL (9.0-12.2); MONOCYTES # (AUTO) 0.7 X 10^3 (0.0-1.0); MONOCYTES % (AUTO) 8 % (0-12); NEUTROPHILS # (AUTO) 4.8 X 10^3 (1.8-7.8); NEUTROPHILS % (AUTO) 55 % (42-75); PLATELET COUNT 299 10^3/uL (130-400); WHITE BLOOD COUNT 8.7 10^3/uL (4.3-11.0)
[2022-06-13 16:35] LABS: ALBUMIN 3.7 GM/DL (3.2-4.5); POTASSIUM 4.3 MMOL/L (3.6-5.0)
[2022-06-13 16:36] LABS: CALCIUM 8.6 MG/DL (8.5-10.1)
[2022-06-13 16:37] LABS: TOTAL PROTEIN 6.8 GM/DL (6.4-8.2)
[2022-06-13 16:39] LABS: BILIRUBIN,TOTAL 0.1 MG/DL (0.1-1.0)
[2022-06-13 16:41] LABS: CREATININE SERUM 0.88 MG/DL (0.60-1.30)
[2022-06-13 16:44] LABS: MAGNESIUM 2.1 MG/DL (1.6-2.4)
[2022-06-13 16:46] LABS: INR 0.9 (0.8-1.4); PROTHROMBIN TIME PATIENT 12.9 SEC (12.2-14.7)
--- NOTE | 2022-06-13 18:27 | ED Chest Pain ---
General Chief Complaint: Cardiac/General Problems Stated Complaint: ABNORMAL EKG Nursing Triage Note: PT HAD ABN EKG TODAY, STATES HAS APPT W DR KURTZ IN JULY. PT STATES HAS L SIDED CHEST DISCOMFORT, PT STATES ALSO HAS ANXIETY. PT STATES STARTED INTERMITTENT CHEST DISCOMFORT A MONTH AGO. PT STATES MOSTLY ATTRIBUTES DISCOMFORT TO ANXIETY Source: patient, old records Exam Limitations: no limitations History of Present Illness Date Seen by Provider: Jun 13, 2022 Time Seen by Provider: 15:04 Allergies and Home Medications Allergies Coded Allergies: Sulfa (Sulfonamide Antibiotics) (Verified Allergy, Unknown, 01/23/17) Patient Home Medication List Aspirin (Aspirin) 81 Mg Tab.chew, 81 MG PO DAILY, (Reported) Entered as Reported by: AYLEEN KAPLAN on 09/19/21922 Cholecalciferol (Vitamin D3) (Vitamin D) 1,000 Unit Tablet, 1,000 UNIT PO DAILY, (Reported) Entered as Reported by: BOB SWANSON on 01/22/17 1235 Fluticasone Propionate (Fluticasone Propionate) 50 Mcg/Actuation [place].susp, 15.8 ML NS DAILY, (Reported) Entered as Reported by: AYLEEN KAPLAN on 09/19/21922 Medroxyprogesterone Acetate (Depo-Provera) 150 Mg/Ml Vial, 150 MG IM UD, (Rep orted) Entered as Reported by: AYLEEN KAPLAN on 09/19/21922 Metoprolol Succinate (Metoprolol Succinate) 50 Mg Tab.er.24h, 50 MG PO BID, (Reported) Entered as Reported by: AYLEEN KAPLAN on 09/19/21922 Spironolactone (Spironolactone) 25 Mg Tablet, 25 MG PO DAILY, (Reported) Entered as Reported by: BOB SWANSON on 01/22/17 1235 Past Bqdlfhp-Aovslw-Sloyve Hx Patient Social History Tobacco Use?: No Substance use?: No Alcohol Use?: Yes Alcohol type: Wine Alcohol Frequency: Once in a while Pt feels they are or have been: No Immunizations Up To Date Tetanus Booster (TDap): Unknown First/Initial COVID19 Vaccinat: STATES 2 VACCINES AND BOOSTER Second COVID19 Vaccination Mendez: STATES 2 VACCINES AND BOOSTER Third COVID19 Vaccination Date: STATES 2 VACCINES AND BOOSTER Seasonal Allergies Seasonal Allergies: Yes Past Medical History Surgery/Hospitalization HX: ANXIETY, HTN Surgeries: Yes ([place] teeth) Appendectomy, Gallbladder Respiratory: No Cardiac: Yes High Cholesterol, Hypertension Neurological: No Reproductive Disorders: Yes Female Reproductive Disorders: Polycystic Ovarian Dis Genitourinary: No Gastrointestinal: No Musculoskeletal: No Endocrine: No HEENT: Yes (Periodontal disease with dental decay and abscess) Loss of Vision: Bilateral Hearing Impairment: Denies Cancer: No Psychosocial: Yes Depression Integumentary: No Blood Disorders: No Family Medical History Colon cancer Physical Exam Vital Signs Vital Signs - First Documented 06/13/22 14:40 Temp 36.7 Pulse 88 Resp 16 B/P (MAP) 133/86 (102) Pulse Ox 100 O2 Delivery Room Air Capillary Refill : Less Than 3 Seconds Height, Weight, BMI Height: 5'4.00" Weight: 240lbs. 0.0oz. [id number]; 41.00 BMI Method: Progress/Results/Core Measures Results/Orders Lab Results Laboratory Tests Test 06/13/22 15:50 06/13/22 16:18 Range/Units White Blood Count 8.7 4.3-11.0 10^3/uL Red Blood Count 4.28 3.80-5.11 10^6/uL Hemoglobin 13.3 11.5-16.0 g/dL Hematocrit 41 35-52 % Mean Corpuscular Volume 96 80-99 fL Mean Corpuscular Hemoglobin 31 25-34 pg Mean Corpuscular Hemoglobin Concent 32 32-36 g/dL Red Cell Distribution Width 13.2 10.0-14.5 % Platelet Count 299 130-400 10^3/uL Mean Platelet Volume 10.4 9.0-12.2 fL Immature Granulocyte % (Auto) 0 % Neutrophils (%) (Auto) 55 42-75 % Lymphocytes (%) (Auto) 34 12-44 % Monocytes (%) (Auto) 8 0-12 % Eosinophils (%) (Auto) 3 0-10 % Basophils (%) (Auto) 0 0-10 % Neutrophils # (Auto) 4.8 1.8-7.8 X 10^3 Lymphocytes # (Auto) 3.0 1.0-4.0 X 10^3 Monocytes # (Auto) 0.7 0.0-1.0 X 10^3 Eosinophils # (Auto) 0.2 0.0-0.3 10^3/uL Basophils # (Auto) 0.0 0.0-0.1 10^3/uL Immature Granulocyte # (Auto) 0.0 0.0-0.1 10^3/uL Prothrombin Time 12.9 12.2-14.7 SEC INR Comment 0.9 0.8-1.4 Activated Partial Thromboplast Time 28 24-35 SEC D-Dimer 0.50 H 0.00-0.49 UG/ML Sodium Level 139 135-145 MMOL/L Potassium Level 4.3 3.6-5.0 MMOL/L Chloride Level 109 H 98-107 MMOL/L Carbon Dioxide Level 25 21-32 MMOL/L Anion Gap 5 5-14 MMOL/L Blood Urea Nitrogen 12 7-18 MG/DL Creatinine 0.88 0.60-1.30 MG/DL Estimat Glomerular Filtration Rate 79 BUN/Creatinine Ratio 14 Glucose Level 84 70-105 MG/DL Calcium Level 8.6 8.5-10.1 MG/DL Corrected Calcium 8.8 8.5-10.1 MG/DL Magnesium Level 2.1 1.6-2.4 MG/DL Total Bilirubin 0.1 0.1-1.0 MG/DL Aspartate Amino Transf (AST/SGOT) 16 5-34 U/L Alanine Aminotransferase (ALT/SGPT) 16 0-55 U/L Alkaline Phosphatase 50 40-136 U/L Myoglobin 19.6 10.0-92.0 NG/ML Troponin I < 0.028 <0.028 NG/ML Total Protein 6.8 6.4-8.2 GM/DL Albumin 3.7 3.2-4.5 GM/DL My Orders Orders - JAD SULLIVAN MD Cbc With Automated Diff (06/13/22 15:04) Magnesium (06/13/22 15:04) Chest 1 View, Ap/Pa Only (06/13/22 15:04) Ekg Tracing (06/13/22 15:04) Comprehensive Metabolic Panel (06/13/22 15:04) Myoglobin Serum (06/13/22 15:04) Protime With Inr (06/13/22 15:04) Partial Thromboplastin Time (06/13/22 15:04) O2 (06/13/22 15:04) Monitor-Rhythm Ecg Trace Only (06/13/22 15:04) Ed Iv/Invasive Line Start (06/13/22 15:04) Troponin I [place] (06/13/22 15:04) Ekg Tracing (06/13/22 15:04) Fibrin Degradation Products (06/13/22 17:31) Vital Signs/I&O 06/13/22 06/13/22 14:40 18:44 Temp 36.7 Pulse 88 90 Resp 16 20 B/P (MAP) 133/86 (102) 120/74 Pulse Ox 100 99 O2 Delivery Room Air Blood Pressure Mean: 102 Initial ECG Impression Date: Jun 13, 2022 Initial ECG Impression Time: 14:58 Initial ECG Rate: 68 Initial ECG Rhythm: Normal Sinus Initial ECG Intervals: Normal Initial ECG Impression: Normal Comment Normal sinus rhythm with no ST elevation or depression. No abnormal intervals or axis deviation. Departure Impression Primary Impression: Chest pain Qualified Codes: R07.9 - Chest pain, unspecified Disposition: 01 HOME, SELF-CARE Condition: Stable Departure-Patient Inst. Decision time for Depature: 18:25 Referrals: PAUL FRANCO DO (PCP/Family) Primary Care Physician Patient Instructions: Chest Pain Add. Discharge Instructions: Based on your work-up in the emergency room and by Dr. Kurtz, it appears unlikely that your chest pain is caused by a heart condition or pulmonary embolism. Continue taking the low-dose aspirin as previously directed. Other possible causes of your chest pain may include acid reflux, radiculopathy from problems in the spine of your neck or upper back, anxiety, or musculoskeletal inflammation. You may visit with your primary care provider about these other possibilities. For musculoskeletal pain you may take Tylenol and/or ibuprofen. For possible acid reflux, you may avoid foods and beverages that worsen the symptoms and take an antacid such as omeprazole for the next few weeks. If you have persistent high heart rate even at rest and when sleeping, follow-up with Dr. Kurtz to discuss further. Return to the emergency room if you have worsening symptoms despite following these instructions. All discharge instructions reviewed with patient and/or family. Voiced understanding. JAD SULLIVAN MD Jun 13, 2022 18:27
[2022-06-13 18:44] VITALS: BP 120/74
== END 2022-06-13 18:44 | disposition home or self-care (01) ==
LOC: EDUNIT# 14:25 → ER 14:27
DX: R07.89 Other chest pain (principal); I10 Essential (primary) hypertension
CPT/HCPCS: 36415; 71045; 80053; 83735; 83874; 84484; 85025; 85379; 85610; 85730; 93005; 93041

== ENCOUNTER → 2022-07-23 | Outpatient (CLI) | payer BC | LOC: CARD 12:39 | PROVIDERS: ATTEND Internal Medicine Cardiovascular Disease | DX: I11.9 Hypertensive heart disease without heart failure (principal); I35.1 Nonrheumatic aortic (valve) insufficiency; I25.10 Atherosclerotic heart disease of native coronary artery without angina pectoris | CPT/HCPCS: 93306 ==

== ENCOUNTER → 2022-09-23 | Outpatient (CLI) | payer BC ==
--- NOTE | 2022-09-23 16:08 | Diagnostic Imaging Report ---
INDICATION: Postmenopausal screening for osteoporosis. COMPARISON: None. FINDINGS: AP Spine L1-L4: [BMD (g/cm2): 1.253] [T-Score: 0.4] [Z-Score: -0.1] [BMD Previous: NA] [BMD % Change: NA] LT Hip Neck: [BMD (g/cm2): 1.041] [T-Score: 0.0] [Z-Score: 0.2] LT Hip Total: [BMD (g/cm2):1.110] [T-Score:0.8] [Z-Score: 0.5] [BMD Previous: NA] [BMD % Change: NA] RT Hip Neck: [BMD (g/cm2):1.016] [T-Score:-0.2] [Z-Score:0.0] RT Hip Total: [BMD (g/cm2):1.071] [T-score:0.5] [Z-Score:0.2] [BMD Previous:NA] [BMD % Change:NA] *Indicates significant change from prior examination based on 95% confidence level. World Health Organization criteria for BMD interpretation classify patients as Normal (T-score at or above -1.0), Osteopenic (T-score between -1.0 and -2.5) or Osteoporotic (T-score at or below -2.5). LIMITATIONS AND MODIFICATION: None. FRACTURE RISK (FRAX SCORE): The ten year probability of (%): Major Osteoporotic Fracture: [NA] Hip Fracture: [NA] IMPRESSION: 1. Normal bone mineral density. 2. Baseline examination. 3. See below National Osteoporosis Foundation guidelines on when to potentially initiate pharmacologic therapy. Based on the National Osteoporosis Foundation Guidelines, pharmacologic treatment should be initiated in any of the following, unless clinical conditions suggest otherwise: * Any patient with prior fragility fracture of the hip or vertebrae. A spine fracture indicates 5X risk for subsequent spine fracture and 2X risk for subsequent hip fracture. * Osteoporosis (T-score <-2.5). * Postmenopausal women and men age 50 and older with low bone mass/osteopenia (T-score between -1.0 and -2.5) by DXA and 10-year major osteoporotic fracture greater than 20% or a 10-year probability of hip fracture greater than 3%. These fracture risks are supplied above in the FRAX score, if applicable. * Clinician judgement and/or patient preferences may indicate treatment for people with 10-year fracture probabilities above or below these levels. Dictated on workstation # [id number]
== END ==
LOC: RAD 14:10
PROVIDERS: ATTEND Nurse Practitioner Women's Health
DX: Z13.820 Encounter for screening for osteoporosis (principal); Z79.899 Other long term (current) drug therapy
CPT/HCPCS: 77080

== ENCOUNTER 2022-11-14 00:35 | Emergency (ER) | payer BC ==
[~2022-11-14] VITALS: Ht 162.6 cm; Wt 103.0 kg
[2022-11-14 01:15] LABS: BASOPHILS # (AUTO) 0.1 10^3/uL (0.0-0.1); BASOPHILS % (AUTO) 0 % (0-10); EOSINOPHILS # (AUTO) 0.1 10^3/uL (0.0-0.3); EOSINOPHILS % (AUTO) 1 % (0-10); HEMATOCRIT 42 % (35-52); LYMPHOCYTES # (AUTO) 6.9 10^3/uL (1.0-4.0); LYMPHOCYTES % (AUTO) 58 % (12-44); MEAN CORPUSCULAR HEMOGLOBIN 31 pg (25-34); MEAN CORPUSCULAR HGB CONC 33 g/dL (32-36); MEAN CORPUSCULAR VOLUME 93 fL (80-99); MEAN PLATELET VOLUME 10.1 fL (9.0-12.2); MONOCYTES # (AUTO) 0.8 10^3/uL (0.0-1.0); MONOCYTES % (AUTO) 7 % (0-12); NEUTROPHILS # (AUTO) 4.1 10^3/uL (1.8-7.8); NEUTROPHILS % (AUTO) 34 % (42-75); PLATELET COUNT 347 10^3/uL (130-400); WHITE BLOOD COUNT 12.1 10^3/uL (4.3-11.0)
[2022-11-14 01:26] LABS: ALBUMIN 4.1 GM/DL (3.2-4.5); CHLORIDE 107 MMOL/L (98-107); SODIUM 139 MMOL/L (135-145)
[2022-11-14 01:27] LABS: AMYLASE 56 U/L (25-125); CALCIUM 9.6 MG/DL (8.5-10.1)
[2022-11-14 01:28] LABS: GLUCOSE 103 MG/DL (70-105); INR 0.9 (0.8-1.4); PROTHROMBIN TIME PATIENT 12.3 SEC (12.2-14.7); TOTAL PROTEIN 7.4 GM/DL (6.4-8.2)
[2022-11-14 01:29] LABS: CARBON DIOXIDE 22 MMOL/L (21-32)
[2022-11-14 01:30] LABS: BILIRUBIN,TOTAL 0.4 MG/DL (0.1-1.0)
[2022-11-14 01:32] LABS: ALKALINE PHOSPHATASE 49 U/L (40-136); CREATININE SERUM 0.96 MG/DL (0.60-1.30); GFR ESTIMATED 71
[2022-11-14 01:33] LABS: BUN/CREATININE RATIO 14
[2022-11-14 01:35] LABS: ALANINE AMINOTRANSFERASE 27 U/L (0-55); MAGNESIUM 2.2 MG/DL (1.6-2.4)
[2022-11-14 01:39] LABS: LYMPHOCYTES % (MANUAL) 52 %; MONOCYTES % (MANUAL) 4 %; NEUTROPHILS % (MANUAL) 32 %; REACTIVE LYMPHOCYTES 12 %
[2022-11-14 01:45] LABS: BACTERIA,URINE MODERATE /HPF; BILIRUBIN,URINE NEGATIVE (NEGATIVE); CLARITY,URINE CLEAR; COLOR,URINE YELLOW; GLUCOSE, URINE (UA) NEGATIVE (NEGATIVE); KETONES,URINE NEGATIVE (NEGATIVE); LEUKOCYTE ESTERASE ,URINE NEGATIVE (NEGATIVE); NITRITE,URINE NEGATIVE (NEGATIVE); PROTEIN,URINE NEGATIVE (NEGATIVE); WBC,URINE 0-2 /HPF
--- NOTE | 2022-11-14 02:02 | ED General ---
General Chief Complaint: General Problems/Pain Stated Complaint: OTT, NUMBNESS,PX IN RT BACK,HIGH BLOOD PRESS Nursing Triage Note: PT AMBULATORY TO ROOM. STATES SHE HAS HAD A HEADACHE X1 WEEK AND SAW DR FRANCO FOR THIS ON THURSDAY. PT REPORTS FEELING PINS AND NEEDLES TONIGHT IN HER LEFT FOREARM AND LEFT CALF THAT CONCERNED HER. PT REPORTS BLOOD PRESSURE AT HOME WAS ELEVATED. PT IS A&OX4, SPEECH NORMAL ON ARRIVAL. Source of Information: Patient History of Present Illness Date Seen by Provider: Nov 14, 2022 Time Seen by Provider: 00:53 Initial Comments PT ARRIVES VIA POV FROM HOME PT WITH A MULTITUDE OF COMPLAINTS C/O ELEVATED BLOOD PRESSURE--ONGOING ISSUE. STATES TONIGHT IT WAS 185 SYSTOLIC. C/O HEADACHE X 1 WEEK--GLOBAL C/O HEADACHE TO LEFT SIDE OF FACE AND FELT BLOOD RUSHING ABOVE HER LEFT EAR AND [facility] TONIGHT C/O "PINS AND NEEDLES" TO ONE SPOT IN HER LEFT CALF, ONE SPOT ON HER LEFT FOREARM AND ALL AROUND HER MOUTH--COMES AND GOES. NOT PRESENT NOW. STATES "SOMETIMES IT FEELS LIKE A LITTLE HAIR ON MY SKIN BUT TONIGHT IT FELT A LITTLE SHARPER" C/O LEFT FLANK PAIN TODAY STATES SHE GOT ANGRY THE END OF OCTOBER AND THE FRONT OF HER NECK STARTED HURTING. SHE HAS BEEN PRESCRIBED TOPROL AND HAD BEEN TAKING 1/2 TAB BID SHE SAW DR. FRANCO ON THURSDAY AND TOPROL WAS INCREASED TO A FULL TAB BID. SHE HAD ROUTINE LAB DONE LAST WEEK AT [facility]. SHE ALSO CALLED DR. BARRON'S OFFICE LAST WEEK AND TALKED TO HIS NURSE AND WAS PRESCRIBED SPIRONOLACTONE. SHE SEES DR. BARRON FOR HTN. NO VISION CHANGES NO DIZZINESS NO CHEST PAIN NO SHORTNESS OF BREATH NO PALPITATIONS NO SYNCOPE NO NAUSEA/VOMITING/DIARRHEA OR ABDOMINAL PAIN NO COLD SYMPTOMS OR RECENT ILLNESS. NO DIFFICULTY SWALLOWING OR TALKING SHE DOES ADMIT TO HAVING ANXIETY AND DOES HAVE XANAX PRN, BUT SHE HAS NOT TAKEN ANY TODAY LMP: UNKNOWN--HAS NOT HAD A PERIOD IN A LONG TIME. SHE HAD BEEN ON DEPO-PROVERA, BUT HAS NOT HAD IT SINCE JUNE. NO CONTROL NOW. SHE STATES "THEY DID LAB AND I'M NOT MENOPAUSAL" SHE HAS NOT DONE A HOME TEST. "BUT THAT IS A CONCERN" PCP: DR. FRANCO FINANCIAL CONTROLLER: DR. BARRON Allergies and Home Medications Allergies Coded Allergies: Sulfa (Sulfonamide Antibiotics) (Verified Allergy, Intermediate, Swelling, 06/22/22) clindamycin (Verified Allergy, Mild, Rash, 06/22/22) amoxicillin (Verified Adverse Reaction, Mild, Diarrhea, 06/22/22) Patient Home Medication List Home Medication List Reviewed: Yes Aspirin (Aspirin) 81 Mg Tab.chew, 81 MG PO DAILY, (Reported) Entered as Reported by: AYLEEN KAPLAN on 09/19/21 09 Cholecalciferol (Vitamin D3) (Vitamin D) 1,000 Unit Tablet, 1,000 UNIT PO DAILY, (Reported) Entered as Reported by: BOB SWANSON on 01/22/17 1235 Fluticasone Propionate (Fluticasone Propionate) 50 Mcg/Actuation [place].susp, 15.8 ML NS DAILY, (Reported) Entered as Reported by: AYLEEN KAPLAN on 09/19/21922 Medroxyprogesterone Acetate (Depo-Provera) 150 Mg/Ml Vial, 150 MG IM UD, (Rep orted) Entered as Reported by: AYLEEN KAPLAN on 09/19/21922 Metoprolol Succinate (Metoprolol Succinate) 50 Mg Tab.er.24h, 50 MG PO BID, (Reported) Entered as Reported by: AYLEEN KAPLAN on 09/19/21922 Spironolactone (Spironolactone) 25 Mg Tablet, 25 MG PO DAILY, (Reported) Entered as Reported by: BOB SWANSON on 01/22/17 1235 Review of Systems Review of Systems Constitutional: no symptoms reported EENTM: see HPI Respiratory: no symptoms reported Cardiovascular: see HPI Gastrointestinal: no symptoms reported Genitourinary: no symptoms reported Musculoskeletal: see HPI Skin: no symptoms reported Psychiatric/Neurological: See HPI Hematologic/Lymphatic: No Symptoms Reported Immunological/Allergic: no symptoms reported Past Stqgvlq-Gjcnlp-Jnmyrz Hx Patient Social History Tobacco Use?: No Substance use?: No Alcohol Use?: Yes Alcohol Frequency: Once in a while Immunizations Up To Date Tetanus Booster (TDap): Unknown Influenza Vaccine Up-to-Date: No; Not Current First/Initial COVID19 Vaccinat: STATES 2 VACCINES AND BOOSTER Second COVID19 Vaccination Mendez: STATES 2 VACCINES AND BOOSTER Third COVID19 Vaccination Date: STATES 2 VACCINES AND BOOSTER Seasonal Allergies Seasonal Allergies: Yes Past Medical History Surgery/Hospitalization HX: ANXIETY, HTN Surgeries: Yes ([place] teeth, dental implants) Appendectomy, Gallbladder Respiratory: No Cardiac: Yes High Cholesterol, Hypertension Neurological: No Reproductive Disorders: Yes (Depo-Provera control--NONE SINCE JUNE 2022) Female Reproductive Disorders: Polycystic Ovarian Dis Genitourinary: No Gastrointestinal: No Musculoskeletal: No Endocrine: No HEENT: Yes (Periodontal disease with dental decay and abscess) Loss of Vision: Bilateral Hearing Impairment: Denies Cancer: No Psychosocial: Yes Anxiety, Depression Integumentary: No Blood Disorders: No Family Medical History Colon cancer STRESS TEST 07/[address] BARRON: Conclusion: 1. Fair exercise tolerance for a total of 5 minutes 30 seconds on standard Lg protocol, 7.1 METS achieving 86% of maximal expected heart rate 2. Appropriate heart rate and blood pressure response to exercise return to baseline during recovery 3. Minimal nondiagnostic EKG changes with exercise return to baseline during recovery 4. Breast attenuation with typical female pattern mild decrease uptake involving the basal to mid anterior wall with mild reversibility, there is no significant ischemia or infarction on SPECT images 5. Normal left ventricular size, EF 56% Physical Exam Vital Signs Vital Signs - First Documented 11/14/22 11/14/22 00:54 02:25 Temp 37.0 Pulse 94 Resp 17 B/P (MAP) 126/82 (97) Pulse Ox 99 O2 Delivery Room Air Capillary Refill : Height, Weight, BMI Height: 5'4.00" Weight: 240lbs. 0.0oz. 108.104076zh; 38.00 BMI Method: General Appearance: No Apparent Distress, WD/WN, Anxious HEENT: PERRL/EOMI, TMs Normal, Normal ENT Inspection, Pharynx Normal Neck: Full Range of Motion, Normal Inspection, Non Tender, Supple; No Carotid Bruit, No JVD Respiratory: Normal Breath Sounds, No Accessory Muscle Use, No Respiratory Distress Cardiovascular: Regular Rate, Rhythm, No Edema, No JVD, No Murmur, Normal Peripheral Pulses Gastrointestinal: Non Tender, Soft Back: Normal Inspection Extremity: Normal Capillary Refill, Normal Inspection, Normal Range of Motion, Non Tender, No Calf Tenderness, No Pedal Edema Neurologic/Psychiatric: Alert, Oriented x3, No Motor/Sensory Deficits, supervisor order takers II- XII Norm as Tested; No Abnormal Cerebellar Tests Skin: Normal Color, Warm/Dry Progress/Results/Core Measures Suspected Sepsis SIRS Temperature: Pulse: 94 Respiratory Rate: 17 Laboratory Tests 11/14/22 01:09: White Blood Count 12.1H Blood Pressure 126 /82 Mean: 97 Laboratory Tests 11/14/22 01:09: Creatinine 0.96, INR Comment 0.9, Platelet Count 347, Total Bilirubin 0.4 Results/Orders Lab Results Laboratory Tests Test 11/14/22 01:09 11/14/22 01:15 Range/Units White Blood Count 12.1 H 4.3-11.0 10^3/uL Red Blood Count 4.52 3.80-5.11 10^6/uL Hemoglobin 14.0 11.5-16.0 g/dL Hematocrit 42 35-52 % Mean Corpuscular Volume 93 80-99 fL Mean Corpuscular Hemoglobin 31 25-34 pg Mean Corpuscular Hemoglobin Concent 33 32-36 g/dL Red Cell Distribution Width 13.2 10.0-14.5 % Platelet Count 347 130-400 10^3/uL Mean Platelet Volume 10.1 9.0-12.2 fL Immature Granulocyte % (Auto) 0 % Neutrophils (%) (Auto) 34 L 42-75 % Lymphocytes (%) (Auto) 58 H 12-44 % Monocytes (%) (Auto) 7 0-12 % Eosinophils (%) (Auto) 1 0-10 % Basophils (%) (Auto) 0 0-10 % Neutrophils # (Auto) 4.1 1.8-7.8 10^3/uL Lymphocytes # (Auto) 6.9 H 1.0-4.0 10^3/uL Monocytes # (Auto) 0.8 0.0-1.0 10^3/uL Eosinophils # (Auto) 0.1 0.0-0.3 10^3/uL Basophils # (Auto) 0.1 0.0-0.1 10^3/uL Immature Granulocyte # (Auto) 0.0 0.0-0.1 10^3/uL Neutrophils % (Manual) 32 % Lymphocytes % (Manual) 52 % Monocytes % (Manual) 4 % Reactive Lymphocytes 12 % Prothrombin Time 12.3 12.2-14.7 SEC INR Comment 0.9 0.8-1.4 Activated Partial Thromboplast Time 27 24-35 SEC Sodium Level 139 135-145 MMOL/L Potassium Level 4.0 3.6-5.0 MMOL/L Chloride Level 107 98-107 MMOL/L Carbon Dioxide Level 22 21-32 MMOL/L Anion Gap 10 5-14 MMOL/L Blood Urea Nitrogen 13 7-18 MG/DL Creatinine 0.96 0.60-1.30 MG/DL Estimat Glomerular Filtration Rate 71 BUN/Creatinine Ratio 14 Glucose Level 103 70-105 MG/DL Calcium Level 9.6 8.5-10.1 MG/DL Corrected Calcium 9.5 8.5-10.1 MG/DL Magnesium Level 2.2 1.6-2.4 MG/DL Total Bilirubin 0.4 0.1-1.0 MG/DL Aspartate Amino Transf (AST/SGOT) 19 5-34 U/L Alanine Aminotransferase (ALT/SGPT) 27 0-55 U/L Alkaline Phosphatase 49 40-136 U/L Troponin I < 0.028 <0.028 NG/ML Total Protein 7.4 6.4-8.2 GM/DL Albumin 4.1 3.2-4.5 GM/DL Amylase Level 56 25-125 U/L TSH [place] Testing 2.30 0.35-4.94 UIU/ML Serum Test, Qualitative NEGATIVE NEGATIVE Urine Color YELLOW Urine Clarity CLEAR Urine pH 6.0 5-9 Urine Specific [place] 1.020 1.016-1.022 Urine Protein NEGATIVE NEGATIVE Urine Glucose (UA) NEGATIVE NEGATIVE Urine Ketones NEGATIVE NEGATIVE Urine Nitrite NEGATIVE NEGATIVE Urine Bilirubin NEGATIVE NEGATIVE Urine Urobilinogen 0.2 < = 1.0 MG/DL Urine Leukocyte Esterase NEGATIVE NEGATIVE Urine RBC (Auto) NEGATIVE NEGATIVE Urine RBC NONE /HPF Urine WBC 0-2 /HPF Urine Squamous Epithelial Cells 5-10 /HPF Urine Crystals NONE /LPF Urine Bacteria MODERATE H /HPF Urine Casts NONE /LPF Urine Mucus NEGATIVE /LPF Urine Culture Indicated YES My Orders Orders - ALIVIA REYEZ DO Ed Iv/Invasive Line Start (11/14/22 01:01) Ekg Tracing (11/14/22 01:01) Monitor-Rhythm Ecg Trace Only (11/14/22 01:01) Ct Head Wo-R/O Stroke (11/14/22 01:01) Chest 1 View, Ap/Pa Only (11/14/22 01:01) Amylase (11/14/22 01:01) Cbc With Automated Diff (11/14/22 01:01) Comprehensive Metabolic Panel (11/14/22 01:01) Hcg,Qualitative Serum (11/14/22 01:01) Magnesium (11/14/22 01:01) Protime With Inr (11/14/22 01:01) Partial Thromboplastin Time (11/14/22 01:01) Thyroid Analyzer (11/14/22 01:01) Ua Culture If Indicated (11/14/22 01:01) Troponin I [place] (11/14/22 01:01) Manual Differential (11/14/22 01:09) Urine Culture (11/14/22 01:15) Vital Signs/I&O 11/14/22 11/14/22 00:54 02:25 Temp 37.0 Pulse 94 78 Resp 17 16 B/P (MAP) 126/82 (97) 112/70 Pulse Ox 99 100 O2 Delivery Room Air Capillary Refill : Blood Pressure Mean: 97 Progress Note : Progress Note VITALS ON ARRIVAL: TEMP 37.0=98.6 , HR 94, RR 17. BP 126/82, O2 SAT 99% ON ROOM AIR LABS INCLUDING CBC,CMP,COAGULATION STUDIES, TROPONIN, TSH, ALL NORMAL UA HAS BACTERIA BUT NO OTHER EVIDENCE FOR INFECTION. PT IS NOT HAVING ANY URINARY SYMPTOMS. CULTURE IS PENDING, SO WILL HOLD OFF ON ANTIBIOTICS UNTIL CULTURE RESULTED. EKG IS NORMAL CXR AND CT HEAD ARE NORMAL PT IS SYMPTOM FREE THROUGHOUT ENTIRE ER STAY DISCUSSED TEST RESULTS, ANTICIPATED COURSE, SYMPTOMATIC TREATMENT, NEED FOR FOLLOW UP AND RETURN PRECAUTIONS REVIEWED PRIOR RECORDS INCLUDING ER VISITS. ECG Initial ECG Impression Date: Nov 14, 2022 Initial ECG Impression Time: 01:11 Initial ECG Rate: 76 Initial ECG Rhythm: Normal Sinus Initial ECG Intervals MO 141 QRS 104 QT/QTC 376/406 Initial ECG Impression: Nonspecific Changes Initial ECG Comparisson: Unchanged Diagnostic Imaging Comments CXR--NO ACUTE PROCESS, PENDING RADIOLOGIST REVIEW CT HEAD--PER STATRAD VIA FAXA T 0159 -NO ACUTE INTRACRANIAL PATHOLOGY Reviewed: Reviewed by Me Departure Impression Primary Impression: Labile hypertension Additional Impression: Anxiety Disposition: 01 HOME, SELF-CARE Condition: Stable Departure-Patient Inst. Decision time for Depature: 02:12 Referrals: PAUL FRANCO DO (PCP/Family) Primary Care Physician Patient Instructions: High Blood Pressure ED Add. Discharge Instructions: CONTINUE ALL YOUR MEDICATIONS PRESCRIBED FOLLOW UP WITH DR. FRANCO NEXT WEEK FOR FURTHER CARE All discharge instructions reviewed with patient and/or family. Voiced understanding. ALIVIA REYEZ DO Nov 14, 2022 02:02
[2022-11-14 02:25] VITALS: BP 112/70
--- NOTE | 2022-11-14 06:45 | Diagnostic Imaging Report ---
INDICATION: Hypertension and altered mental status. TECHNIQUE: Multiple contiguous axial images were obtained through the brain without the use of intravenous contrast. Auto Exposure Controls were utilized during the CT exam to meet ALARA standards for radiation dose reduction. There is no prior study for comparison. There are no extraaxial fluid collections. No intracranial hemorrhage. No intracranial mass or mass effect. No midline shift. The ventricles are normal in size and position. There are no focal parenchymal abnormalities in the brain. Calvarial windows are unremarkable. IMPRESSION: Negative noncontrast brain CT. Dictated by: Dictated on workstation # [id number]
--- NOTE | 2022-11-14 07:39 | Diagnostic Imaging Report ---
INDICATION: Hypertension Frontal chest obtained at 1:22 p.m. The study is limited by poor aspiration. Heart is normal in size. Mediastinal silhouette is unremarkable. The lungs are clear. There is no pneumothorax or pleural fluid. IMPRESSION: Poor inspiration with no acute process in the chest. Dictated by: Dictated on workstation # [id number]
== END 2022-11-14 02:25 | disposition home or self-care (01) ==
LOC: EDUNIT# 00:35 → ER 00:39
DX: I10 Essential (primary) hypertension (principal); F41.9 Anxiety disorder, unspecified
CPT/HCPCS: 36415; 70450; 71045; 80053; 81000; 82150; 83735; 84443; 84484; 84703; 85007; 85027; 85610; 85730; 87088; 93005; 93041

== ENCOUNTER 2022-11-19 15:02 | Outpatient (RCR) | payer BC | END 2022-12-04 | disposition home or self-care (01) | LOC: ONC 15:02 | PROVIDERS: ATTEND Internal Medicine Hematology & Oncology | DX: D72.829 Elevated white blood cell count, unspecified (principal); F41.9 Anxiety disorder, unspecified; E28.2 Polycystic ovarian syndrome; N75.1 Abscess of Bartholin's gland | CPT/HCPCS: 99204 ==

== ENCOUNTER → 2023-02-06 | Outpatient (CLI) | payer BC ==
--- NOTE | 2023-02-06 09:10 | Diagnostic Imaging Report ---
INDICATION: Routine screening. Comparison is made with prior mammogram from 01/01/2022 and 01/09/2021. 2-D and 3-D bilateral screening mammography was performed with CAD. Scattered fibroglandular densities are identified bilaterally. The parenchymal pattern is stable. No mass or malignant-appearing microcalcifications are identified. Axillae are unremarkable. IMPRESSION: No mammographic features suspicious for malignancy are identified. ACR BI-RADS Category 1: Negative. Result letter will be mailed to the patient. Note: At least 10% of breast cancer is not imaged by mammography. BI-RADS Category 1 Dictated by: Dictated on workstation # [id number]
== END ==
LOC: RAD 07:30
PROVIDERS: ATTEND Internal Medicine
DX: Z12.31 Encounter for screening mammogram for malignant neoplasm of breast (principal)
CPT/HCPCS: 77063; 77067